=== PATIENT | male | born 1995 | race Hispanic/Latino ===

== ENCOUNTER 2021-11-09 17:01 | Inpatient (IN) | payer OTHER ==
[~2021-11-09] VITALS: Ht 175.3 cm; Wt 104.6 kg
[2021-11-09] MEDS ORDERED: 0.9%NACL 1000ML 1,000 ML IV ONE (17:30)
[2021-11-09 17:57] LABS: BASOPHILS % (AUTO) 0.5 % (0.0-5.0); EOSINOPHILS % (AUTO) 1.7 % (0.0-8.0); HEMATOCRIT 41.9 % (42-54); LYMPHOCYTES % (AUTO) 26.7 % (21.0-51.0); MEAN CORPUSCULAR HEMOGLOBIN 29.2 pg (27.0-33.0); MEAN CORPUSCULAR HGB CONC 33.9 g/dL (32.0-36.0); MEAN CORPUSCULAR VOLUME 86.2 fL (79-99); MONOCYTES % (AUTO) 10.8 % (3.0-13.0); NEUTROPHILS % (AUTO) 59.8 % (40.0-77.0); PLATELET COUNT (AUTO) 228 K/uL (130-400); RED BLOOD CELL COUNT(AUTO) 4.86 MIL/uL (4.50-6.20); RED CELL DISTRIBUTION WIDTH 12.2 % (11.0-15.5); WHITE BLOOD COUNT (AUTO) 6.5 K/uL (4.8-10.8)
[2021-11-09 18:12] LABS: CREATININE 1.1 mg/dL (0.5-1.5); POTASSIUM 4.3 mmol/L (3.5-5.1)
[2021-11-09 18:34] LABS: ALBUMIN 3.7 g/dL (3.5-5.0); BILIRUBIN,TOTAL 0.5 mg/dL (0.2-1.0); TOTAL PROTEIN, SERUM 7.7 g/dL (6.0-8.3)
[2021-11-09] MEDS ORDERED: ONDANSETRON 4MG INJ IV PRN (23:30)
[2021-11-09] MEDS ORDERED: ACETAMINOPHEN 325 MG TAB PO PRN ×2 (23:30)
[2021-11-09] MEDS ORDERED: MORPHINE 2 MG SYG IV PRN (23:30)
[2021-11-09] MEDS: 0.9%NACL 1000ML 1,000 ML IV SCH (23:42)
[2021-11-10 04:20] LABS: BASOPHILS % (AUTO) 0.4 % (0.0-5.0); HEMATOCRIT 40.5 % (42-54); LYMPHOCYTES % (AUTO) 31.7 % (21.0-51.0); MEAN CORPUSCULAR HEMOGLOBIN 29.5 pg (27.0-33.0); MEAN CORPUSCULAR HGB CONC 34.3 g/dL (32.0-36.0); MONOCYTES % (AUTO) 9.4 % (3.0-13.0); NEUTROPHILS % (AUTO) 56.1 % (40.0-77.0); PLATELET COUNT (AUTO) 218 K/uL (130-400); RED BLOOD CELL COUNT(AUTO) 4.71 MIL/uL (4.50-6.20); WHITE BLOOD COUNT (AUTO) 6.8 K/uL (4.8-10.8)
[2021-11-10 04:53] LABS: ALBUMIN 3.6 g/dL (3.5-5.0); BILIRUBIN,TOTAL 0.6 mg/dL (0.2-1.0); CREATININE 0.8 mg/dL (0.5-1.5); TOTAL PROTEIN, SERUM 7.2 g/dL (6.0-8.3)
[2021-11-10 04:57] LABS: HEMOGLOBIN A1C 11.5 % (4.0-6.0)
[2021-11-10 05:51] LABS: ERYTHROCYTE SEDIMENTATION RATE 9 MM/HR (0-15)
[2021-11-10] MEDS: 0.9%NACL 1000ML 1,000 ML IV SCH ×3 (06:13→21:27)
[2021-11-10] MEDS ORDERED: INSULIN HUMULIN R 100 UNIT/ML 3ML SQ SCH (07:30)
[2021-11-10] MEDS: FAMOTIDINE 20MG VIAL IV SCH ×2 (08:10→21:22)
[2021-11-10 08:50] VITALS: BP 117/71
[2021-11-10 11:00] VITALS: BP 122/65
[2021-11-10] MEDS: INSULIN HUMULIN R 100 UNIT/ML 3ML SQ SCH ×5 (12:18→21:32)
[2021-11-10 16:00] VITALS: BP 110/52
[2021-11-10 18:51] LABS: AMPHET/METH SCREEN,URINE NEGATIVE (NEGATIVE); BARBITURATE SCREEN, URINE NEGATIVE (NEGATIVE); BENZODIAZEPINES SCREEN,URINE NEGATIVE (NEGATIVE); CANNABINOID SCREEN,URINE NEGATIVE (NEGATIVE); COCAINE SCREEN,URINE NEGATIVE (NEGATIVE); OPIATE SCREEN,URINE NEGATIVE (NEGATIVE); PHENCYCLIDINE SCREEN,URINE NEGATIVE (NEGATIVE)
[2021-11-10 19:00] VITALS: BP 120/69
[2021-11-10] MEDS: HYDROXYZINE 25 MG TABLET PO SCH (21:25)
[2021-11-11] VITALS: BP 118/72
[2021-11-11 04:00] VITALS: BP 117/69
[2021-11-11 05:26] LABS: HEMATOCRIT 41.7 % (42-54); MEAN CORPUSCULAR HEMOGLOBIN 28.5 pg (27.0-33.0); MEAN CORPUSCULAR HGB CONC 33.8 g/dL (32.0-36.0); MEAN CORPUSCULAR VOLUME 84.4 fL (79-99); RED BLOOD CELL COUNT(AUTO) 4.94 MIL/uL (4.50-6.20); RED CELL DISTRIBUTION WIDTH 11.8 % (11.0-15.5); WHITE BLOOD COUNT (AUTO) 7.8 K/uL (4.8-10.8)
[2021-11-11 06:02] LABS: CREATININE 0.7 mg/dL (0.5-1.5); POTASSIUM 3.7 mmol/L (3.5-5.1)
[2021-11-11] MEDS: INSULIN HUMULIN R 100 UNIT/ML 3ML SQ SCH ×10 (07:30→21:28)
[2021-11-11] MEDS: HYDROXYZINE 25 MG TABLET PO SCH ×3 (09:13→21:19)
[2021-11-11] MEDS: FAMOTIDINE 20MG VIAL IV SCH ×2 (09:13→21:19)
[2021-11-11] MEDS: 0.9%NACL 1000ML 1,000 ML IV SCH ×3 (09:16→21:19)
[2021-11-11 09:45] VITALS: BP 110/67
[2021-11-11 13:25] VITALS: BP 103/57
[2021-11-11 17:19] VITALS: BP 81/32
[2021-11-11 19:20] VITALS: BP 107/57
[2021-11-12] VITALS (8 sets, daily range): BP systolic 103–120; BP diastolic 47–72
[2021-11-12 04:44] LABS: HEMATOCRIT 39.8 % (42-54); MEAN CORPUSCULAR HEMOGLOBIN 29.4 pg (27.0-33.0); MEAN CORPUSCULAR HGB CONC 34.7 g/dL (32.0-36.0); MEAN CORPUSCULAR VOLUME 84.9 fL (79-99); RED BLOOD CELL COUNT(AUTO) 4.69 MIL/uL (4.50-6.20); RED CELL DISTRIBUTION WIDTH 11.9 % (11.0-15.5); WHITE BLOOD COUNT (AUTO) 7.3 K/uL (4.8-10.8)
[2021-11-12 05:18] LABS: ALBUMIN 3.4 g/dL (3.5-5.0); BILIRUBIN,TOTAL 0.5 mg/dL (0.2-1.0); CREATININE 0.8 mg/dL (0.5-1.5); POTASSIUM 3.5 mmol/L (3.5-5.1); TOTAL PROTEIN, SERUM 7.1 g/dL (6.0-8.3)
[2021-11-12] MEDS: INSULIN HUMULIN R 100 UNIT/ML 3ML SQ SCH ×7 (07:30→20:32)
[2021-11-12] MEDS: FAMOTIDINE 20MG VIAL IV SCH ×2 (08:33→20:26)
[2021-11-12] MEDS: HYDROXYZINE 25 MG TABLET PO SCH ×3 (08:33→20:26)
[2021-11-12] MEDS: 0.9%NACL 1000ML 1,000 ML IV SCH ×3 (08:34→17:16)
[2021-11-12] MEDS ORDERED: 0.9%NACL 1000ML 1,000 ML IV SCH (12:30)
[2021-11-13] MEDS: 0.9%NACL 1000ML 1,000 ML IV SCH ×4 (00:18→21:23)
[2021-11-13 04:50] VITALS: BP 114/62
[2021-11-13 05:06] LABS: HEMATOCRIT 39.1 % (42-54); MEAN CORPUSCULAR HEMOGLOBIN 29.4 pg (27.0-33.0); MEAN CORPUSCULAR VOLUME 83.9 fL (79-99); RED BLOOD CELL COUNT(AUTO) 4.66 MIL/uL (4.50-6.20); WHITE BLOOD COUNT (AUTO) 7.6 K/uL (4.8-10.8)
[2021-11-13 05:35] LABS: CREATININE 0.8 mg/dL (0.5-1.5)
[2021-11-13] MEDS: INSULIN HUMULIN R 100 UNIT/ML 3ML SQ SCH ×7 (07:06→21:27)
[2021-11-13] MEDS ORDERED: 0.9%NACL 1000ML 1,000 ML IV ONE (07:30)
[2021-11-13 08:14] VITALS: BP 111/62
[2021-11-13] MEDS: FAMOTIDINE 20MG VIAL IV SCH ×2 (10:17→21:20)
[2021-11-13] MEDS: HYDROXYZINE 25 MG TABLET PO SCH ×3 (10:17→21:20)
[2021-11-13 12:16] VITALS: BP 98/54
[2021-11-13 18:10] VITALS: BP 159/68
[2021-11-13 20:09] VITALS: BP 110/52
[2021-11-13 23:44] VITALS: BP 115/77
[2021-11-14 03:12] VITALS: BP 98/49
[2021-11-14 05:05] LABS: HEMATOCRIT 39.7 % (42-54); MEAN CORPUSCULAR HEMOGLOBIN 28.8 pg (27.0-33.0); MEAN CORPUSCULAR VOLUME 84.6 fL (79-99); RED BLOOD CELL COUNT(AUTO) 4.69 MIL/uL (4.50-6.20); RED CELL DISTRIBUTION WIDTH 11.9 % (11.0-15.5); WHITE BLOOD COUNT (AUTO) 10.3 K/uL (4.8-10.8)
[2021-11-14 05:21] LABS: CREATININE 0.8 mg/dL (0.5-1.5); POTASSIUM 3.7 mmol/L (3.5-5.1)
[2021-11-14] MEDS: INSULIN HUMULIN R 100 UNIT/ML 3ML SQ SCH ×7 (06:20→20:50)
[2021-11-14 08:00] VITALS: BP 115/56
[2021-11-14] MEDS: 0.9%NACL 1000ML 1,000 ML IV SCH ×4 (08:52→22:44)
[2021-11-14] MEDS: FAMOTIDINE 20MG VIAL IV SCH ×2 (08:53→20:48)
[2021-11-14] MEDS: HYDROXYZINE 25 MG TABLET PO SCH ×3 (08:54→20:48)
[2021-11-14] MEDS ORDERED: HYDR-3421 PO (09:18)
[2021-11-14] MEDS ORDERED: LACTULOSE 20 GM/30 ML UDCUP PO PRN (11:00)
[2021-11-14 12:00] VITALS: BP 104/59
[2021-11-14 16:00] VITALS: BP 119/70
[2021-11-14 19:23] VITALS: BP 98/53
[2021-11-14 23:33] VITALS: BP 101/66
[2021-11-15 03:56] VITALS: BP 120/75
[2021-11-15] MEDS: 0.9%NACL 1000ML 1,000 ML IV SCH ×2 (05:22→13:00)
[2021-11-15] MEDS: INSULIN HUMULIN R 100 UNIT/ML 3ML SQ SCH ×6 (06:36→16:18)
[2021-11-15] MEDS: FAMOTIDINE 20MG VIAL IV SCH (07:43)
[2021-11-15] MEDS: HYDROXYZINE 25 MG TABLET PO SCH ×2 (07:43→13:53)
[2021-11-15 08:00] VITALS: BP 135/80
[2021-11-15 11:49] VITALS: BP 118/60
[2021-11-15 16:00] VITALS: BP 100/69
[2021-11-15 20:33] VITALS: BP 112/66
== END 2021-11-15 23:12 | DRG 558 ==
LOC: EDH 17:01 → EDHIP 17:02 → 3AH 11-10 08:50
PROVIDERS: ADMIT Hospitalist; ATTEND Hospitalist
DX: M62.82 Rhabdomyolysis (principal); R45.851 Suicidal ideations; E11.65 Type 2 diabetes mellitus with hyperglycemia; F39 Unspecified mood [affective] disorder; F43.22 Adjustment disorder with anxiety; R74.01 Elevation of levels of liver transaminase levels
CPT/HCPCS: 36415; 80048; 80053; 80305; 82550; 82948; 83036; 85025; 85027; 85651; 93005; G0378; J1815; J3490; J7030